=== PATIENT | male | born 1965 | race Caucasian/White ===

== ENCOUNTER 2018-04-17 22:45 | Inpatient (IN) | payer OTHER ==
[~2018-04-17 22:45] MED LIST: MELATONIN 5 MG TABLETS PO PRN
--- NOTE | 2018-04-17 22:59 | HP ---
CIWA Score - CIWA Score Nausea/Vomitin Muscle Tremors: 4-Moderate,w/Arms Extend Anxiety: 5 Agitation: 4-Moderately Restless Paroxysmal Sweats: 3 Orientation: 0-Oriented Tacttile Disturbances: 2-Mild Itch/Numbness/Burn Auditory Disturbances: 3-Moderate Harsh/Frighten Visual Disturbances: 3-Moderate Sensitivity Headache: 2-Mild CIWA-Ar Total Score: 29 Admission ROS BHS - HPI Chief Complaint: DEPENDENT ON ETOH ONLY Allergies/Adverse Reactions: Allergies Allergy/AdvReac Type Severity Reaction Status Date / Time No Known Allergies Allergy Verified 04/17/18 23:10 History of Present Illness: THE PT. IS REQUESTING ADMISSION TO THE DETOX UNIT AND CAME FOR MEDICAL CLEARANCE Exam Limitations: No Limitations - Ebola screening Have you traveled outside of the country in the last 21 days: No Have you had contact with anyone from an Ebola affected area: No Have you been sick,other than usual withdrawal symptoms: No Do you have a fever: No - Review of Systems Constitutional: See HPI, Malaise, Weakness EENT: reports: See HPI Respiratory: reports: See HPI Cardiac: reports: See HPI, Syncope GI: reports: See HPI, Nausea, Abdominal cramping : reports: See HPI Musculoskeletal: reports: See HPI, Back Pain, Joint Pain, Joint Swelling, Muscle Pain, Muscle Weakness Integumentary: reports: See HPI, Flushing, Sweating Neuro: reports: See HPI, Headache, Tremors, Weakness Endocrine: reports: See HPI Hematology: reports: See HPI Psychiatric: reports: Judgement Intact, Orientated x3, Anxious, Depressed Patient History - Patient Medical History Hx Hypertension: Yes Hx Human Immunodeficiency Virus (HIV): No Hx Hepatitis C: No Hx Depression: Yes (AND ANXIETY) Other Medical History: GOUT, INSOMNIA - Patient Surgical History Past Surgical History: Yes Hx Orthopedic Surgery: Yes (FOR LOW BACK 20 YRS. AGO) - Smoking Cessation Smoking history: Current every day smoker Have you smoked in the past 12 months: Yes Aproximately how many cigarettes per day: 20 Hx Chewing Tobacco Use: No Initiated information on smoking cessation: Yes 'Breaking Loose' booklet given: 04/17/18 - Substance & Tx. History Hx Alcohol Use: Yes Hx Substance Use: No Substance Use Type: Alcohol Hx Substance Use Treatment: Yes - Substances Abused Alcohol Frequency: Daily Amount used: LIQUOR 1-2 QTS./D Age of first use: 12 Date of Last Use: 04/17/18 Family Disease History - Family Disease History Family Disease History: Other: Father (ETOH DEPENDENT AND ) Admission Physical Exam [facility] - Physical General Appearance: Yes: No Apparent Distress, Nourished, Appropriately Dressed , Alcohol on Breath, Obese, Tremorous, Sweating, Anxious HEENTM: Yes: Hearing grossly Normal, Normocephalic, Normal Voice, INEZ, Pharynx Normal Respiratory: Yes: Chest Non-Tender, Lungs Clear, Normal Breath Sounds, No Respiratory Distress, No Accessory Muscle Use Neck: Yes: No masses,lesions,Nodules, Supple, Trachea in good position Breast: Yes: Breast Exam Deferred, Axillae without masses Cardiology: Yes: Regular Rhythm, S1, S2, Tachycardia Abdominal: Yes: Normal Bowel Sounds, Non Tender, Soft, Protuberent Back: Yes: Normal Inspection Musculoskeletal: Yes: full range of Motion, Muscle Pain, Muscle weakness Extremities: Yes: Normal Capillary Refill, Normal Range of Motion, Non-Tender, Tremors, Swelling Neurological: Yes: Fully Oriented, Alert, Motor Strength 5/5, Normal Response, Depressed Affect Integumentary: Yes: Warm, Moist Lymphatic: Yes: Within Normal Limits - Addiitonal Findings: RT. KNEE: SWELLING + SEC. TO EFFUSION+ RT. LOWER LIMB: MILD SWELLING+ - Diagnostic (1) EtOH dependence Current Visit: Yes Status: Chronic Qualifiers: Substance use status: uncomplicated Qualified Code(s): F10.20 - Alcohol dependence, uncomplicated (2) Anxiety and depression Current Visit: Yes Status: Chronic (3) Insomnia Current Visit: Yes Status: Acute Qualifiers: Insomnia type: unspecified Qualified Code(s): G47.00 - Insomnia, unspecified (4) Gout Current Visit: Yes Status: Chronic (5) Nicotine dependence Current Visit: Yes Status: Chronic Qualifiers: Nicotine product type: cigarettes (6) Obesity Current Visit: Yes Status: Acute (7) HTN (hypertension) Current Visit: Yes Status: Chronic Qualifiers: Hypertension type: essential hypertension Qualified Code(s): I10 - Essential (primary) hypertension (8) Chronic low back pain Current Visit: Yes Status: Chronic Qualifiers: Back pain laterality: midline Sciatica laterality: sciatica laterality unspecified Cleared for Admission [facility] - Detox or Rehab [facility] Level of Care: Medically Managed Detox Regimen/Protocol: Librium [facility] Breath Alcohol Content Breath Alcohol Content: 0.219
[2018-04-17] MEDS ORDERED: MENTHOL/PHENOL 1 EACH UD MM PRN (23:21)
[2018-04-17] MEDS ORDERED: chlordiazePOXIDE HCL 25 MG CAPSULE PO ONE (23:21)
[2018-04-17] MEDS ORDERED: MAGNESIUM CITRATE 300 ML BOTTLE PO PRN (23:21)
[2018-04-17] MEDS ORDERED: NICOTINE POLACRILEX 4 MG GUM BUC PRN (23:21)
[2018-04-17] MEDS ORDERED: P-EPHED 60MG/TRIPROLIDI 2.5MG TABLET PO PRN (23:21)
[2018-04-17] MEDS ORDERED: MAGNESIUM HYDROX 2400MG/30ML ORAL SUSPENSION 30 ML CUP PO PRN (23:21)
[2018-04-17] MEDS ORDERED: LOPERAMIDE HCL 2 MG CAPSULE PO PRN (23:21)
[2018-04-17] MEDS ORDERED: guaiFENesin/D-METHORPHAN HB 10 ML UNIT-DOSE CUPS PO PRN (23:21)
[2018-04-17] MEDS ORDERED: MAG HYDROX/AL HYDROX/SIMETH 30 ML UNIT-DOSE CUP PO PRN (23:21)
[2018-04-18 00:04] VITALS: BMI 33.7
[2018-04-18] MEDS: chlordiazePOXIDE HCL 25 MG CAPSULE PO SCH ×5 (05:40→22:06)
[2018-04-18] MEDS ORDERED: HYDROCHLOROTHIAZIDE 50 MG TABLET PO SCH (10:00)
[2018-04-18 10:12] LABS: HEMATOCRIT 46.2 % (35.4-49); HEMOGLOBIN 15.5 GM/dL (11.7-16.9); MCH 33.2 pg (25.7-33.7); MCHC 33.6 g/dl (32.0-35.9); PLATELET COUNT 102 K/MM3 (134-434); RBC 4.67 M/mm3 (4.00-5.60); RDW 13.7 % (11.9-15.9); WHITE BLOOD COUNT 6.5 K/mm3 (4.0-10.0)
[2018-04-18 10:42] LABS: ALBUMIN 3.4 g/dl (3.4-5.0); ALK PHOS 90 U/L (45-117); ANION GAP 9 MMOL/L (8-16); BILIRUBIN,TOTAL 0.4 mg/dL (0.2-1); BLOOD UREA NITROGEN 14 mg/dL (7-18); CALCIUM 8.6 mg/dL (8.5-10.1); CHLORIDE 106 mmol/L (98-107); CO2 26 mmol/L (21-32); CREATININE 0.7 mg/dL (0.55-1.3); GLUCOSE,RANDOM 99 mg/dL (74-106); POTASSIUM 3.2 mmol/L (3.5-5.1); SGOT/AST 65 U/L (15-37); SGPT/ALT 44 U/L (13-61); SODIUM 141 mmol/L (136-145); TOT PROT 7.3 g/dl (6.4-8.2)
[2018-04-18] MEDS: NICOTINE 21 MG/24 HOURS TOPICAL PATCH TD SCH (10:51)
[2018-04-18] MEDS: PRENATAL VITAMINS W/ FOLIC ACID TABLET (FP) PO SCH (10:51)
--- NOTE | 2018-04-18 11:10 | EKG ---
Test Reason : Blood Pressure : / mmHG Vent. Rate : 077 BPM Atrial Rate : 077 BPM P-R Int : 184 ms QRS Dur : 092 ms QT Int : 378 ms P-R-T Axes : 068 032 046 degrees QTc Int : 427 ms NORMAL SINUS RHYTHM NORMAL ECG NO PREVIOUS ECGS AVAILABLE Confirmed by SHAKIR MORILLO MD ([id number]) on 04/18/2018 11:10:09 AM Referred By: Confirmed By:SHAKIR MORILLO MD
--- NOTE | 2018-04-18 11:37 | CONSULT ---
[facility] Psychiatric Consult - Data Date of interview: 04/18/18 Admission source: [facility] Identifying data: This is a 52 years old male, , unemployed, homeless, on PA, with no psychiatric hospitalization history, reporting Alcohol, Nicotine dependence, reporting Alcohol withdrawal symptoms and seekingn detox. Denies suicidal, homicidal history. Substance Abuse History: Smoking Cessation. Smoking history: Current every day smoker. Have you smoked in the past 12 months: Yes. Aproximately how many cigarettes per day: 20. Hx Chewing Tobacco Use: No. Initiated information on smoking cessation: Yes. 'Breaking Loose' booklet given: 04/17/18. - Substance & Tx. History. Hx Alcohol Use: Yes. Hx Substance Use: No. Substance Use Type : Alcohol. Hx Substance Use Treatment: Yes. - Substances Abused. Alcohol. Frequency: Daily. Amount used: LIQUOR 1-2 QTS./D. Age of first use: 12. Date of Last Use: 04/17/18 Medical History: Gout, Obesity, HTN, LBP, Psychiatric History: Patient reports history of depression and insomnia, reports taking prior to admission: Trazodone 150mg po qhs. Patient denies suicidal, homicidal history. Physical/Sexual Abuse/Trauma History: Denies Additional Comment: Trazodone 150mg po qhs Mental Status Exam - Mental Status Exam Alert and Oriented to: Person Cognitive Function: Fair Patient Appearance: Well Groomed Mood: Apprehensive Affect: Mood Congruent Patient Behavior: Sedated Speech Pattern: Appropriate Voice Loudness: Mildly Soft/Quiet Thought Process: Goal Oriented Thought Disorder: Being Controlled Hallucinations: Denies Suicidal Ideation: Denies Homicidal Ideation: Denies Insight/Judgement: Fair Sleep: Poorly Appetite: Weight gain Muscle strength/Tone: Normal Gait/Station: Normal Additional Comments: Trazodone 150mg po qhs Psychiatric Findings - Problem List ([place] 1, 2,3) (1) Insomnia Current Visit: Yes Status: Acute Qualifiers: Insomnia type: unspecified Qualified Code(s): G47.00 - Insomnia, unspecified (2) Obesity Current Visit: Yes Status: Acute (3) Anxiety and depression Current Visit: Yes Status: Chronic (4) Chronic low back pain Current Visit: Yes Status: Chronic Qualifiers: Back pain laterality: midline Sciatica laterality: sciatica laterality unspecified (5) EtOH dependence Current Visit: Yes Status: Chronic Qualifiers: Substance use status: uncomplicated Qualified Code(s): F10.20 - Alcohol dependence, uncomplicated (6) Gout Current Visit: Yes Status: Chronic (7) HTN (hypertension) Current Visit: Yes Status: Chronic Qualifiers: Hypertension type: essential hypertension Qualified Code(s): I10 - Essential (primary) hypertension (8) Nicotine dependence Current Visit: Yes Status: Chronic Qualifiers: Nicotine product type: cigarettes - Initial Treatment Plan Initial Treatment Plan: Trazodone 150mg po qhs
[2018-04-18] MEDS: chlordiazePOXIDE HCL 25 MG CAPSULE PO PRN (12:36)
[2018-04-18] MEDS ORDERED: cloNIDine HCL 0.1 MG TABLET PO ONE ×2 (14:00→22:00)
[2018-04-18] MEDS ORDERED: chlordiazePOXIDE HCL 25 MG CAPSULE PO ONE (14:00)
--- NOTE | 2018-04-18 14:43 | PN ---
[facility] CIWA - CIWA Score Nausea/Vomitin-Mild Nausea/No Vomiting Muscle Tremors: 5 Anxiety: 3 Agitation: 3 Paroxysmal Sweats: 1-Minimal Palms Moist Orientation: 1-Uncertain about Date Tacttile Disturbances: 1-Very Mild Itch/Numbness Auditory Disturbances: 1-Very Mild Visual Disturbances: 0-None Headache: 1-Very Mild CIWA-Ar Total Score: 17 BHS Progress Note (SOAP) Subjective: tremor sweat gi distressed trouble sleep at night restlessness Objective: 04/18/18 14:39 Vital Signs Temperature 97.7 F 04/18/18 13:04 Pulse Rate 76 04/18/18 14:00 Respiratory Rate 20 04/18/18 13:04 Blood Pressure 172/90 H 04/18/18 13:04 O2 Sat by Pulse Oximetry (%) Laboratory Last Values WBC 6.5 K/mm3 (4.0-10.0) 04/18/18 07:30 RBC 4.67 M/mm3 (4.00-5.60) 04/18/18 07:30 Hgb 15.5 GM/dL (11.7-16.9) 04/18/18 07:30 Hct 46.2 % (35.4-49) 04/18/18 07:30 MCV 99.0 fl (80-96) H 04/18/18 07:30 MCH 33.2 pg (25.7-33.7) 04/18/18 07:30 MCHC 33.6 g/dl (32.0-35.9) 04/18/18 07:30 RDW 13.7 % (11.9-15.9) 04/18/18 07:30 Plt Count 102 K/MM3 (134-434) L 04/18/18 07:30 MPV 6.0 fl (7.5-11.1) L 04/18/18 07:30 Sodium 141 mmol/L (136-145) 04/18/18 07:30 Potassium 3.2 mmol/L (3.5-5.1) L 04/18/18 07:30 Chloride 106 mmol/L (98-107) 04/18/18 07:30 Carbon Dioxide 26 mmol/L (21-32) 04/18/18 07:30 Anion Gap 9 MMOL/L (8-16) 04/18/18 07:30 BUN 14 mg/dL (7-18) 04/18/18 07:30 Creatinine 0.7 mg/dL (0.55-1.3) 04/18/18 07:30 Creat Clearance w eGFR > 60 (>60) 04/18/18 07:30 Random Glucose 99 mg/dL (74-106) 04/18/18 07:30 Calcium 8.6 mg/dL (8.5-10.1) 04/18/18 07:30 Total Bilirubin 0.4 mg/dL (0.2-1) 04/18/18 07:30 AST 65 U/L (15-37) H 04/18/18 07:30 ALT 44 U/L (13-61) 04/18/18 07:30 Alkaline Phosphatase 90 U/L (45-117) 04/18/18 07:30 Total Protein 7.3 g/dl (6.4-8.2) 04/18/18 07:30 Albumin 3.4 g/dl (3.4-5.0) 04/18/18 07:30 RPR Titer Nonreactive (NONREACTIVE) 04/18/18 07:30 lab noted K+ supplement Assessment: 04/18/18 15:04 withdrawal sx Plan: continue detox
[2018-04-18] MEDS: POTASSIUM CHLORIDE TABS 20 MEQ TABLET.ER (FP) PO SCH ×2 (17:26→22:06)
[2018-04-18] MEDS: hydrOXYzine PAMOATE 50 MG CAPSULE (FP) PO PRN (20:20)
--- NOTE | 2018-04-18 22:05 | PN ---
[facility] Progress Note Note: Patient's blood pressure is B/P 186/109. Patient is asymptomatic Vital Signs Temperature 97.7 F 04/18/18 21:43 Pulse Rate 88 04/18/18 21:43 Respiratory Rate 18 04/18/18 21:43 Blood Pressure 186/109 H 04/18/18 21:43 O2 Sat by Pulse Oximetry (%) Action: Clonidine 0.1mg 1 tablet oral ordered
[2018-04-18] MEDS: THIAMINE HCL 100 MG TABLET (FP) PO SCH (22:06)
[2018-04-19] MEDS: IBUPROFEN 400 MG TABLET (FP) PO PRN ×2 (02:15→14:30)
[2018-04-19] MEDS: chlordiazePOXIDE HCL 25 MG CAPSULE PO PRN (02:17)
[2018-04-19] MEDS: chlordiazePOXIDE HCL 25 MG CAPSULE PO SCH ×3 (06:00→17:54)
[2018-04-19] MEDS: POTASSIUM CHLORIDE TABS 20 MEQ TABLET.ER (FP) PO SCH ×2 (11:02→22:09)
[2018-04-19] MEDS: HYDROCHLOROTHIAZIDE 25 MG TABLET (FP) PO SCH (11:02)
[2018-04-19] MEDS: PRENATAL VITAMINS W/ FOLIC ACID TABLET (FP) PO SCH (11:02)
[2018-04-19] MEDS: NICOTINE 21 MG/24 HOURS TOPICAL PATCH TD SCH (11:02)
--- NOTE | 2018-04-19 12:07 | PN ---
[facility] CIWA - CIWA Score Nausea/Vomitin-Mild Nausea/No Vomiting Muscle Tremors: 4-Moderate,w/Arms Extend Anxiety: 4-Mod. Anxious/Guarded Agitation: 4-Moderately Restless Paroxysmal Sweats: 1-Minimal Palms Moist Orientation: 0-Oriented Tacttile Disturbances: 0-None Auditory Disturbances: 0-None Visual Disturbances: 0-None Headache: 1-Very Mild CIWA-Ar Total Score: 15 BHS Progress Note (SOAP) Subjective: sweat tremor anxiety c/o right knee pain history of gout right knee swell +1, tender, no erythema, skin intact neg warmth +2 popteal pulse limited range of motion Objective: 04/19/18 12:11 Vital Signs Temperature 97.9 F 04/19/18 09:37 Pulse Rate 71 04/19/18 09:37 Respiratory Rate 18 04/19/18 09:37 Blood Pressure 175/75 H 04/19/18 09:37 O2 Sat by Pulse Oximetry (%) Laboratory Last Values WBC 6.5 K/mm3 (4.0-10.0) 04/18/18 07:30 RBC 4.67 M/mm3 (4.00-5.60) 04/18/18 07:30 Hgb 15.5 GM/dL (11.7-16.9) 04/18/18 07:30 Hct 46.2 % (35.4-49) 04/18/18 07:30 MCV 99.0 fl (80-96) H 04/18/18 07:30 MCH 33.2 pg (25.7-33.7) 04/18/18 07:30 MCHC 33.6 g/dl (32.0-35.9) 04/18/18 07:30 RDW 13.7 % (11.9-15.9) 04/18/18 07:30 Plt Count 102 K/MM3 (134-434) L 04/18/18 07:30 MPV 6.0 fl (7.5-11.1) L 04/18/18 07:30 Sodium 141 mmol/L (136-145) 04/18/18 07:30 Potassium 3.4 mmol/L (3.5-5.1) L 04/19/18 07:00 Chloride 106 mmol/L (98-107) 04/18/18 07:30 Carbon Dioxide 26 mmol/L (21-32) 04/18/18 07:30 Anion Gap 9 MMOL/L (8-16) 04/18/18 07:30 BUN 14 mg/dL (7-18) 04/18/18 07:30 Creatinine 0.7 mg/dL (0.55-1.3) 04/18/18 07:30 Creat Clearance w eGFR > 60 (>60) 04/18/18 07:30 Random Glucose 99 mg/dL (74-106) 04/18/18 07:30 Calcium 8.6 mg/dL (8.5-10.1) 04/18/18 07:30 Total Bilirubin 0.4 mg/dL (0.2-1) 04/18/18 07:30 AST 65 U/L (15-37) H 04/18/18 07:30 ALT 44 U/L (13-61) 04/18/18 07:30 Alkaline Phosphatase 90 U/L (45-117) 04/18/18 07:30 Total Protein 7.3 g/dl (6.4-8.2) 04/18/18 07:30 Albumin 3.4 g/dl (3.4-5.0) 04/18/18 07:30 RPR Titer Nonreactive (NONREACTIVE) 04/18/18 07:30 lab noted 04/19/18 12:12 persistent bp elevation prn librium without effect begin amlodopine 10 mg Assessment: 04/19/18 12:13 withdrawal sx hypertension low K+ Plan: continue detox continue K+ supplement repeat K+ 04/20/18 amlodopine 10 mg
[2018-04-19] MEDS: amLODIPine BESYLATE 10 MG TABLET (FP) PO SCH (14:30)
[2018-04-19] MEDS: hydrOXYzine PAMOATE 50 MG CAPSULE (FP) PO PRN (17:55)
[2018-04-19] MEDS: ACETAMINOPHEN 325 MG TABLET (FP) PO PRN (19:42)
[2018-04-19] MEDS: THIAMINE HCL 100 MG TABLET (FP) PO SCH (22:09)
[2018-04-19] MEDS: chlordiazePOXIDE 5 MG CAPSULE PO SCH (22:11)
[2018-04-20] MEDS: IBUPROFEN 400 MG TABLET (FP) PO PRN (00:42)
[2018-04-20] MEDS: chlordiazePOXIDE HCL 25 MG CAPSULE PO PRN (00:45)
[2018-04-20] MEDS: chlordiazePOXIDE 5 MG CAPSULE PO SCH ×2 (06:21→11:43)
[2018-04-20] MEDS: ACETAMINOPHEN 325 MG TABLET (FP) PO PRN (06:27)
[2018-04-20] MEDS ORDERED: predniSONE 20 MG TABLET (UD) PO ONE (11:40)
[2018-04-20] MEDS: HYDROCHLOROTHIAZIDE 25 MG TABLET (FP) PO SCH (11:41)
[2018-04-20] MEDS: PRENATAL VITAMINS W/ FOLIC ACID TABLET (FP) PO SCH (11:41)
[2018-04-20] MEDS: POTASSIUM CHLORIDE TABS 20 MEQ TABLET.ER (FP) PO SCH (11:41)
[2018-04-20] MEDS: amLODIPine BESYLATE 10 MG TABLET (FP) PO SCH (11:42)
[2018-04-20] MEDS: NICOTINE 21 MG/24 HOURS TOPICAL PATCH TD SCH (11:42)
--- NOTE | 2018-04-20 11:48 | DS ---
[facility] Detox Discharge Summary Admission Date: 04/17/18 Discharge Date: 04/20/18 - History Present History: Alcohol Dependence Additional Comments: 52 years old male admitted on 04/17/18 for alcohol withdrawal sx patient reported feeling better mild alcohol withdrawal sx bare tolerable case discussed with counselor that 5[facility] has a bed for the patient, patient wants to go to [facility] for rehab patient has gout x 15 years on and off average "many times" per year taking indomethacin prn and prednison patient stated that he fell in the bathroom, unwitnessed fall by protocol ER evaluation is necessary also the patient reporte 04/20 pain on right knee immobile, wheelchair patient understand that rehab bed available for him when return from ER medical clearance current medical condition: low potassium serum level on K+ supplement 20 meq bid level 3.2 - 3.4 0 3.2 one extra dose K+ now and prednison 60 mg now if possible patient may return to [facility] for [facility] rehab when medically cleared from ER - Physical Exam Results Vital Signs: Vital Signs Temperature 98.1 F 04/20/18 10:13 Pulse Rate 98 H 04/20/18 10:13 Respiratory Rate 19 04/20/18 10:13 Blood Pressure 154/94 04/20/18 10:13 O2 Sat by Pulse Oximetry (%) Pertinent Admission Physical Exam Findings: alcohol withdrawal sx Vital Signs Temperature 98.1 F 04/20/18 10:13 Pulse Rate 98 H 04/20/18 10:13 Respiratory Rate 19 04/20/18 10:13 Blood Pressure 154/94 04/20/18 10:13 O2 Sat by Pulse Oximetry (%) Laboratory Last Values WBC 6.5 K/mm3 (4.0-10.0) 04/18/18 07:30 RBC 4.67 M/mm3 (4.00-5.60) 04/18/18 07:30 Hgb 15.5 GM/dL (11.7-16.9) 04/18/18 07:30 Hct 46.2 % (35.4-49) 04/18/18 07:30 MCV 99.0 fl (80-96) H 04/18/18 07:30 MCH 33.2 pg (25.7-33.7) 04/18/18 07:30 MCHC 33.6 g/dl (32.0-35.9) 04/18/18 07:30 RDW 13.7 % (11.9-15.9) 04/18/18 07:30 Plt Count 102 K/MM3 (134-434) L 04/18/18 07:30 MPV 6.0 fl (7.5-11.1) L 04/18/18 07:30 Sodium 141 mmol/L (136-145) 04/18/18 07:30 Potassium 3.2 mmol/L (3.5-5.1) L 04/20/18 07:30 Chloride 106 mmol/L (98-107) 04/18/18 07:30 Carbon Dioxide 26 mmol/L (21-32) 04/18/18 07:30 Anion Gap 9 MMOL/L (8-16) 04/18/18 07:30 BUN 14 mg/dL (7-18) 04/18/18 07:30 Creatinine 0.7 mg/dL (0.55-1.3) 04/18/18 07:30 Creat Clearance w eGFR > 60 (>60) 04/18/18 07:30 Random Glucose 99 mg/dL (74-106) 04/18/18 07:30 Calcium 8.6 mg/dL (8.5-10.1) 04/18/18 07:30 Total Bilirubin 0.4 mg/dL (0.2-1) 04/18/18 07:30 AST 65 U/L (15-37) H 04/18/18 07:30 ALT 44 U/L (13-61) 04/18/18 07:30 Alkaline Phosphatase 90 U/L (45-117) 04/18/18 07:30 Total Protein 7.3 g/dl (6.4-8.2) 04/18/18 07:30 Albumin 3.4 g/dl (3.4-5.0) 04/18/18 07:30 RPR Titer Nonreactive (NONREACTIVE) 04/18/18 07:30 lab noted K+ extra dose x 1 repeat K+ - Treatment Hospital Course: Detox Protocol Followed, Detoxed Safely, Responded well, Discharged Condition Good, Rehab Referral Accepted Patient has Accepted a Rehab Referral to: [facility] - Medication Discharge Medications: Ambulatory Orders NK [No Known Home Medication] 10/08/18 - Diagnosis (1) EtOH dependence Current Visit: Yes Status: Acute Qualifiers: Substance use status: uncomplicated Qualified Code(s): F10.20 - Alcohol dependence, uncomplicated (2) Gout Current Visit: Yes Status: Chronic Qualifiers: Gout site: knee Gout etiology: unspecified cause Chronicity: acute Laterality: right Qualified Code(s): M10.9 - Gout, unspecified (3) HTN (hypertension) Current Visit: Yes Status: Chronic Qualifiers: Hypertension type: essential hypertension Qualified Code(s): I10 - Essential (primary) hypertension (4) Nicotine dependence Current Visit: Yes Status: Acute Qualifiers: Nicotine product type: cigarettes Substance use status: in withdrawal Qualified Code(s): F17.213 - Nicotine dependence, cigarettes, with withdrawal - AMA Did Patient Leave Against Medical Advice: No
[2018-04-20] MEDS ORDERED: POTASSIUM CHLORIDE TABS 20 MEQ TABLET.ER (FP) PO ONE (11:53)
[2018-04-20 13:12] VITALS: BP 159/97; PULSE 79; TEMP 100
[2018-04-20] MEDS ORDERED: INDOMETHACIN 50 MG CAPSULE PO SCH (14:00)
[2018-04-20] MEDS ORDERED: chlordiazePOXIDE HCL 10 MG CAPSULE PO SCH (23:00)
== END 2018-04-20 12:06 | disposition short-term general hospital (02) | DRG 775 ==
LOC: YASAS 22:45 → Y6N 23:36
PROC: HZ2ZZZZ Detoxification Services for Substance Abuse Treatment (ICD-10-PCS; principal; 2018-04-17)
DX: F10.230 Alcohol dependence with withdrawal, uncomplicated (principal); F17.213 Nicotine dependence, cigarettes, with withdrawal; F41.8 Other specified anxiety disorders; I10 Essential (primary) hypertension; M10.9 Gout, unspecified; G47.00 Insomnia, unspecified; M54.5 Low back pain; G89.29 Other chronic pain; E66.9 Obesity, unspecified; Z68.33 Body mass index [BMI] 33.0-33.9, adult
CPT/HCPCS: 36415; 73560-TC-RT-FY; 80053; 84132; 85027; 86593; 93005; 93010; J0735

== ENCOUNTER 2018-04-20 12:18 | Inpatient (IN) | payer OTHER ==
--- NOTE | 2018-04-20 13:15 | PDOC ---
History of Present Illness - General Stated Complaint: FALL - History of Present Illness Initial Comments: 04/20/18 13:09 52 yo M w/ PMH anxiety, HTN, etoh abuse, gout, presenting to the ED from detox ( admitted 04/17/18) after sustaining unwitnessed mechanical fall and R knee joint swelling/possible gout flare x3wk. Pt says he slipped on wet pavement and fell on his knee 2mo ago. 3 weeks ago he noticed his R knee started to swell. pt endorses diet heavy in meat and fish and f/w a PCP ([facility]) who prescribed him indomethacin and prednisone PRN. pt ran out of his meds and did not f/u w/ PCP. pt says it has become increasingly difficult to walk on his feet and has increased etoh use to numb pain. In detox today, pt had unwitnessed mechanical fall on R side, denies LOC, neuro deficits, or hitting head but does endorse a mild CHIRINOS. Pt also endorses fevers and chills and says he is unable to walk/bend R knee due to 10/10 pain. Pt had one episode of diarrhea today. Pt also having some pain in L ankle w/ movement. detox sent pt here to be w/u for fall and gout Denies cp, sob, n/v, urinary sxs, numbness, tingling, abd pain SH: denies drugs. etoh quart a day. smoke 1pk/dy for 30 yrs Past History - Past Medical History Allergies/Adverse Reactions: Allergies Allergy/AdvReac Type Severity Reaction Status Date / Time No Known Allergies Allergy Verified 04/20/18 13:06 Home Medications: Ambulatory Orders NK [No Known Home Medication] 04/18/18 Asthma: No Cardiac Disorders: No COPD: No Diabetes: No GI Disorders: No HTN: Yes Seizures: No - Surgical History Orthopedic Surgery: Yes (FOR LOW BACK 20 YRS. AGO) - Suicide/Smoking/Psychosocial Hx Smoking History: Current every day smoker Have you smoked in the past 12 months: Yes Number of Cigarettes Smoked Daily: 35 Information on smoking cessation initiated: Yes 'Breaking Loose' booklet given: 04/20/18 Hx Alcohol Use: Yes Drug/Substance Use Hx: No Substance Use Type: Alcohol Hx Substance Use Treatment: Yes Review of Systems - Review of Systems Constitutional: Yes: See HPI HEENTM: Yes: See HPI Respiratory: Yes: See HPI Cardiac (ROS): Yes: See HPI ABD/GI: Yes: See HPI : Yes: See HPI Musculoskeletal: Yes: See HPI Integumentary: Yes: See HPI Neurological: Yes: See HPI Endocrine: Yes: See HPI Hematologic/Lymphatic: Yes: See HPI *Physical Exam - Vital Signs Last Vital Signs Temp Pulse Resp BP Pulse Ox 98.1 F 100 H 18 156/144 H 100 04/20/18 13:05 04/20/18 13:05 04/20/18 13:05 04/20/18 13:05 04/20/18 13:05 - Physical Exam Comments: 04/20/18 14:04 General: Well-nourished, in mild distress HEENT: NCAT, MMM Neck: Supple, no lymphadenopathy Respiratory: CTAB cardio: RRR S1 S2 no m/r/g Abdomen:+ BS Soft, NTND Extremities: radial 2+ b/l. Warm, dry, no cyanosis, clubbing. RLE, suprapatellar soft tissue swelling, no erythema, warm to touch, TTP, Limited passive ROM, FROM w/ active felxion by me. LLE no swelling, non-tender, FROM Skin: intact. no rashes Neuro: Alert and oriented x3, nonfocal exam, grossly intact Psych: Normal mood and affect Procedures - Consent Consent obtained: Verbal - Arthrocentesis Indication: Crystals (Gout/Psuedogout, Inflammation Arthrocentesis Site: right: knee Flexion: <20 degrees Betadine Prep: Yes Sterile Dressing Applied: Yes Dry Tap: Yes Fluid Color: Yellow Fluid Amount mL: 15 (110cc drained) Needle Size (guage): 18g Complications: No ED Treatment Course - LABORATORY CBC & Chemistry Diagram: 04/20/18 13:40 04/20/18 13:40 Medical Decision Making - Medical Decision Making 04/20/18 14:09 52 yo M w/ PMH anxiety, HTN, etoh abuse, gout, presenting to the ED from detox ( admitted 04/17/18) after sustaining unwitnessed mechanical fall and R knee joint swelling/possible gout flare x3wk pt has fever 100.8, tachy. recent knee xr on 04/19/18 shows joint effusion Ddx: gout flare, septic joint, frax -CBC, CMP, coags, uric acid, Bcx, Ucx, UA -CXR -Indomethacin 50mg -Knee XR r/o frax -will f/u labs and xr and tap knee if joint effusion is present 04/20/18 15:36 urc acid nl leukocytosis XR shows no frax, soft tissue swelling superior to patela/within joint capsule 04/20/18 15:41 R knee arthrocentisis performed, 110cc turbid yellow fluid drained will send synovial fluid for cx, cell count, crystal percocet for pain CXR shows no acute pathology GC amplification 04/20/18 18:27 pt received 3 of 4 doses librium at detox will complete 4th dose now 04/20/18 21:02 wbc [id number] - not septic joint attempted to ambulate pt and pt is unable to ambulate on his own and is too unstable with crutches will place in obs for pain control - pred/colchicine/indomethicin 04/20/18 20:[address] Hendrix for pain control and PT eval for gout arthritis of R knee 04/20/18 20:[address] Hendrix who accepts pt to service *DC/Admit/Observation/Transfer Diagnosis at time of Disposition: Inability to walk EtOH dependence Qualifiers: Substance use status: uncomplicated Qualified Code(s): F10.20 - Alcohol dependence, uncomplicated Gout Qualifiers: Gout site: knee Gout etiology: unspecified cause Chronicity: acute Laterality: right Qualified Code(s): M10.9 - Gout, unspecified - Referrals - Patient Instructions - Post Discharge Activity
[2018-04-20 13:52] LABS: BASO % 0.5 % (0-2.0); EOS % 0.7 % (0-4.5); HEMOGLOBIN 17.2 GM/dL (11.7-16.9); LYMPH % 5.9 % (8-40); MCH 33.1 pg (25.7-33.7); MCHC 33.7 g/dl (32.0-35.9); MEAN CELL VOLUME 98.3 fl (80-96); MEAN PLT VOLUME 6.5 fl (7.5-11.1); MONO % 8.3 % (3.8-10.2); NEUT % 84.6 % (42.8-82.8); PLATELET COUNT 82 K/MM3 (134-434); RBC 5.19 M/mm3 (4.00-5.60); RDW 13.5 % (11.9-15.9); WHITE BLOOD COUNT 12.7 K/mm3 (4.0-10.0)
[2018-04-20] MEDS ORDERED: INDOMETHACIN 50 MG CAPSULE PO ONE (13:53)
[2018-04-20 14:21] LABS: INR 0.97 (0.83-1.09); PROTHROMBIN TIME (PATIENT) 11.5 SEC (9.7-13.0)
[2018-04-20 14:24] LABS: ACTIVATED PTT 31.5 SECONDS (25.2-36.5)
[2018-04-20 14:33] LABS: ALK PHOS 114 U/L (45-117); ANION GAP 9 MMOL/L (8-16); BILIRUBIN,TOTAL 1.6 mg/dL (0.2-1); BLOOD UREA NITROGEN 19 mg/dL (7-18); CALCIUM 9.8 mg/dL (8.5-10.1); CHLORIDE 100 mmol/L (98-107); CO2 26 mmol/L (21-32); CREATININE 1.2 mg/dL (0.55-1.3); GLUCOSE,RANDOM 121 mg/dL (74-106); POTASSIUM 3.9 mmol/L (3.5-5.1); SGOT/AST 40 U/L (15-37); SGPT/ALT 37 U/L (13-61); SODIUM 134 mmol/L (136-145); TOT PROT 8.8 g/dl (6.4-8.2)
--- NOTE | 2018-04-20 14:40 | PDOC ---
Attending Attestation - HPI HPI: 04/20/18 14:40 The patient is a 52-year-old male with past medical history significant for HTN and anxiety presents to the emergency department s/p a fall at the detox facility. The patient states hes been having difficulty ambulating secondary to a flare-up of R. knee swelling. - Medical Decision Making 04/20/18 14:40 Documentation prepared by Palak Boo, acting as medical records administrator for Michoacano Camacho MD. <Palak Boo - Last Filed: 04/20/18 14:40> - Resident Resident Name: Ike Retana - ED Attending Attestation I have performed the following: I have examined & evaluated the patient, The case was reviewed & discussed with the resident, I agree w/resident's findings & plan, Exceptions are as noted - Physicial Exam PE: 04/20/18 15:59 Patient is awake and alert, febrile, nontoxic appearing Normocephalic and atraumatic CTA RRR Right knee: Significant suprapatellar soft tissue swelling with effusion, anterior/posterior drawers are negative; Beatrice's negative; distally intact neurovascularly. - Medical Decision Making 04/20/18 16:00 52-year-old male with history of gout and EtOH abuse, currently patient at [facility] inpatient for alcohol abuse presents with low-grade fever and and atraumatic edematous right knee. Differential diagnoses includes septic arthritis versus gouty arthritis versus pseudogout. Blood cultures obtained. Arthrocentesis obtained with drainage of approximately 110 mL of turbid yellow fluid. Will obtain fluid culture, cell count profile and will test for crystals. We'll administer Indocin. Will reassess. <Michoacano Camacho - Last Filed: 04/20/18 16:01>
--- NOTE | 2018-04-20 16:59 | PDOC ---
*Physical Exam - Vital Signs Last Vital Signs Temp Pulse Resp BP Pulse Ox 98.1 F 100 H 18 147/101 H 100 04/20/18 13:05 04/20/18 13:31 04/20/18 13:31 04/20/18 13:31 04/20/18 13:31 - Physical Exam Comments: 04/20/18 20:38 Gen: awake, alert heart: +s1s2 reg lungs: cta b/l abd: soft, nt/nd, +bs ext: R knee ttp, dressing in place from arthrocentesis, pt unable to ambulate with assistance or with crutches ED Treatment Course - LABORATORY CBC & Chemistry Diagram: 04/20/18 13:40 04/20/18 13:40 - ADDITIONAL ORDERS Additional order review: Laboratory Results 04/20/18 04/20/18 04/20/18 13:40 13:40 13:39 PT with INR 11.50 INR 0.97 PTT (Actin FS) 31.5 Sodium 134 L Potassium 3.9 Chloride 100 Carbon Dioxide 26 Anion Gap 9 BUN 19 H Creatinine 1.2 Creat Clearance w eGFR > 60 Random Glucose 121 H Uric Acid 7.2 Calcium 9.8 Total Bilirubin 1.6 H AST 40 H ALT 37 Alkaline Phosphatase 114 Total Protein 8.8 H Albumin 4.0 04/20/18 13:40 RBC 5.19 MCV 98.3 H MCHC 33.7 RDW 13.5 MPV 6.5 L Neutrophils % 84.6 H Lymphocytes % 5.9 L Monocytes % 8.3 Eosinophils % 0.7 Basophils % 0.5 - Medications Given in the ED: ED Medications Discontinued Medications Generic Name Dose Route Start Last Admin Trade Name Kristin PRN Reason Stop Dose Admin Indomethacin 50 mg 04/20/18 13:53 04/20/18 15:14 Indocin - PO 04/20/18 13:54 50 mg ONCE ONE Administration Oxycodone/Acetaminophen 1 combo 04/20/18 16:06 04/20/18 16:12 Percocet 5/325 - PO 04/20/18 16:07 1 combo ONCE ONE Administration Medical Decision Making - Medical Decision Making 04/20/18 16:58 a/p: 52yo male with knee swelling, low grade temp, hx of gout pt from inpt at [facility] for detox from [facility] pt pending labs, arthrocentesis results. 04/20/18 20:39 wbc [id number] - not septic joint attempted to ambulate pt and pt is unable to ambulate on his own and is too unstable with crutches will place in obs for pain control - pred/colchicine/indomethicin 04/20/18 20:[address] Hendrix for pain control and PT eval for gout arthritis of R knee 04/20/18 20:[address] Hendrix who accepts pt to service *DC/Admit/Observation/Transfer Diagnosis at time of Disposition: EtOH dependence, Gout, Inability to walk - Discharge Dispostion Condition at time of disposition: Fair Decision to Admit order: Yes - Referrals - Patient Instructions - Post Discharge Activity - Attestations Physician Attestion: 04/20/18 20:46 I, Dr. Jessica Guzmán, DO, attest that this document has been prepared under my direction and personally reviewed by me in its entirety. I further attest, that it accurately reflects all work, treatment, procedures and medical decision -making performed by me.
[2018-04-20 17:37] LABS: URINE APPEARANCE CLEAR; URINE BILIRUBIN NEGATIVE (<2.0 mg/dL); URINE COLOR YELLOW; URINE GLUCOSE (UA) NEGATIVE (NEGATIVE); URINE KETONE TRACE (NEGATIVE); URINE LEUK ESTERASE NEGATIVE (NEGATIVE); URINE NITRITE NEGATIVE (NEGATIVE); URINE PROTEIN 2+ (NEGATIVE); URINE UROBILINOGEN NEGATIVE mg/dL (0.2-1.0)
[2018-04-20 17:46] LABS: EPI CELLS RARE /HPF (FEW); URINE MUCUS RARE
[2018-04-20] MEDS ORDERED: chlordiazePOXIDE HCL 10 MG CAPSULE PO ONE (18:26)
[2018-04-20] MEDS ORDERED: chlordiazePOXIDE 5 MG CAPSULE ONE ×2 (18:30→22:55)
[2018-04-20 18:36] LABS: SYNOVIAL FLUID SOURCE SYNOVIAL
[2018-04-20 18:37] LABS: SYNOVIAL FLUID RBC 29737 /mm3
[2018-04-20] MEDS ORDERED: COLCHICINE 0.6 MG TABLET (FP) PO ONE (20:39)
[2018-04-20] MEDS ORDERED: predniSONE 20 MG TABLET (UD) PO ONE (20:40)
[2018-04-20 21:23] LABS: SYNOVIAL FLUID LYMPHOCYTES 5 %; SYNOVIAL FLUID MACROPHAGES 3 %; SYNOVIAL FLUID MONOCYTES 5 %; SYNOVIAL FLUID NEUTROPHILS 87 %
[2018-04-20] MEDS ORDERED: predniSONE 20 MG TABLET (UD) ONE (21:34)
[2018-04-20] MEDS ORDERED: COLCHICINE 0.6 MG TABLET (FP) ONE (21:34)
--- NOTE | 2018-04-20 21:53 | HP ---
Admitting History and Physical - Primary Care Physician PCP: Akhil Hendrix - Admission History of Present Illness: 52 yo M w/ PMH anxiety, HTN, etoh abuse, gout, presenting to the ED from detox ( admitted 04/17/18) after sustaining unwitnessed mechanical fall and R knee joint swelling/possible gout flare x3wk. Pt says he slipped on wet pavement and fell on his knee 2mo ago. 3 weeks ago he noticed his R knee started to swell. pt endorses diet heavy in meat and fish and f/w a PCP ([facility]) who prescribed him indomethacin and prednisone PRN. pt ran out of his meds and did not f/u w/ PCP. pt says it has become increasingly difficult to walk on his feet and has increased etoh use to numb pain. In detox today, pt had unwitnessed mechanical fall on R side, denies LOC, neuro deficits, or hitting head but does endorse a mild CHIRINOS. Pt also endorses fevers and chills and says he is unable to walk/bend R knee due to 10/10 pain. Pt had one episode of diarrhea today. Pt also having some pain in L ankle w/ movement. detox sent pt here to be w/u for fall and gout - Past Medical History Cardiovascular: Yes: HTN Rheumatology: Yes: Gout - Smoking History Smoking history: Current every day smoker Have you smoked in the past 12 months: Yes Aproximately how many cigarettes per day: 35 - Alcohol/Substance Use Hx Alcohol Use: Yes Home Medications - Allergies Allergies/Adverse Reactions: Allergies Allergy/AdvReac Type Severity Reaction Status Date / Time No Known Allergies Allergy Verified 04/20/18 13:06 - Home Medications Home Medications: Ambulatory Orders Paxil 40 mg PO DAILY 04/21/18 Trazodone HCl 150 mg PO HS 04/21/18 Family Disease History - Family Disease History Family Disease History: Other: Father (ETOH DEPENDENT AND ) Physical Examination Vital Signs: Vital Signs Temperature 98.1 F 04/20/18 13:05 Pulse Rate 100 H 04/20/18 13:31 Respiratory Rate 18 04/20/18 13:31 Blood Pressure 147/101 H 04/20/18 13:31 O2 Sat by Pulse Oximetry (%) 100 04/20/18 13:31 HENT: Yes: Atraumatic Neck: Yes: Supple Cardiovascular: Yes: Regular Rate and Rhythm Respiratory: Yes: CTA Bilaterally Gastrointestinal: Yes: Normal Bowel Sounds Extremities: Yes: Other (R knee warm, swollen) Edema: No Neurological: Yes: Alert, Oriented Labs: CBC, BMP 04/20/18 13:40 04/20/18 13:40 Imaging - Results X-ray: Report Reviewed Problem List - Problems (1) EtOH dependence Assessment/Plan: on librium will get detox consult Code(s): F10.20 - ALCOHOL DEPENDENCE, UNCOMPLICATED Qualifiers: (2) Inability to walk Assessment/Plan: prn pain meds Code(s): R26.2 - DIFFICULTY IN WALKING, NOT ELSEWHERE CLASSIFIED (3) Gout Assessment/Plan: will put him on prednisone check uric acid level Code(s): M10.9 - GOUT, UNSPECIFIED Qualifiers: (4) Nicotine dependence Code(s): F17.200 - NICOTINE DEPENDENCE, UNSPECIFIED, UNCOMPLICATED Qualifiers: (5) Anxiety and depression Assessment/Plan: will get psych eval Code(s): F41.9 - ANXIETY DISORDER, UNSPECIFIED; F32.9 - MAJOR DEPRESSIVE DISORDER, SINGLE EPISODE, UNSPECIFIED Assessment/Plan Laboratory Tests 04/20/18 04/20/18 04/20/18 13:39 13:40 13:40 WBC 12.7 H RBC 5.19 Hgb 17.2 H Hct 51.0 H MCV 98.3 H MCH 33.1 MCHC 33.7 RDW 13.5 Plt Count 82 L MPV 6.5 L Absolute Neuts (auto) 10.7 H Neutrophils % 84.6 H Lymphocytes % 5.9 L Monocytes % 8.3 Eosinophils % 0.7 Basophils % 0.5 Nucleated RBC % 0 PT with INR 11.50 INR 0.97 PTT (Actin FS) 31.5 Sodium Potassium Chloride Carbon Dioxide Anion Gap BUN Creatinine Creat Clearance w eGFR Random Glucose Uric Acid 7.2 Calcium Total Bilirubin AST ALT Alkaline Phosphatase Total Protein Albumin Urine Color Urine Appearance Urine pH Ur Specific [place] Urine Protein Urine Glucose (UA) Urine Ketones Urine Blood Urine Nitrite Urine Bilirubin Urine Urobilinogen Ur Leukocyte Esterase Urine WBC (Auto) Urine RBC (Auto) Ur Epithelial Cells Urine Mucus Synovial Source Synovial WBC Synovial RBC Synovial Neutrophils Synovial Lymphocytes Synovial Monocytes Synovial Macrophages 04/20/18 04/20/18 04/20/18 13:40 15:36 17:00 WBC RBC Hgb Hct MCV MCH MCHC RDW Plt Count MPV Absolute Neuts (auto) Neutrophils % Lymphocytes % Monocytes % Eosinophils % Basophils % Nucleated RBC % PT with INR INR PTT (Actin FS) Sodium 134 L Potassium 3.9 Chloride 100 Carbon Dioxide 26 Anion Gap 9 BUN 19 H Creatinine 1.2 Creat Clearance w eGFR > 60 Random Glucose 121 H Uric Acid Calcium 9.8 Total Bilirubin 1.6 H AST 40 H ALT 37 Alkaline Phosphatase 114 Total Protein 8.8 H Albumin 4.0 Urine Color Yellow Urine Appearance Clear Urine pH 7.0 Ur Specific [place] 1.019 Urine Protein 2+ H Urine Glucose (UA) Negative Urine Ketones Trace H Urine Blood 2+ H Urine Nitrite Negative Urine Bilirubin Negative Urine Urobilinogen Negative Ur Leukocyte Esterase Negative Urine WBC (Auto) 1 Urine RBC (Auto) 7 Ur Epithelial Cells Rare Urine Mucus Rare Synovial Source Synovial Synovial WBC 19401 Synovial RBC 47760 Synovial Neutrophils 87 Synovial Lymphocytes 5 Synovial Monocytes 5 Synovial Macrophages 3 Active Medications Generic Name Dose Route Start Last Admin Trade Name Kristin PRN Reason Stop Dose Admin Chlordiazepoxide HCl 15 mg 04/20/18 23:00 04/21/18 16:55 Librium - PO 15 mg [id number] KIRK Administration Heparin Sodium (Porcine) 5,000 unit 04/20/18 22:00 04/21/18 09:49 Heparin - SQ 5,000 unit BID KIRK Administration Oxycodone HCl 10 mg 04/20/18 23:06 Roxicodone - PO Q6H PRN PAIN LEVEL 4 - 6 Prednisone 40 mg 04/21/18 10:00 04/21/18 09:49 Deltasone - PO 40 mg DAILY KIRK Administration Active Medications Generic Name Dose Route Start Last Admin Trade Name Kristin PRN Reason Stop Dose Admin Amlodipine Besylate 5 mg 04/22/18 10:15 04/22/18 10:49 Norvasc - PO 5 mg DAILY KIRK Administration Chlordiazepoxide HCl 15 mg 04/20/18 23:00 04/22/18 10:49 Librium - PO 15 mg [id number] KIRK Administration Colchicine 0.6 mg 04/21/18 20:00 04/22/18 10:49 Colcrys - PO 0.6 mg DAILY KIRK Administration Heparin Sodium (Porcine) 5,000 unit 04/20/18 22:00 04/22/18 10:49 Heparin - SQ 5,000 unit BID KIRK Administration Oxycodone HCl 10 mg 04/20/18 23:06 04/22/18 10:50 Roxicodone - PO 10 mg Q6H PRN Administration PAIN LEVEL 4 - 6 Prednisone 40 mg 04/21/18 10:00 04/22/18 10:49 Deltasone - PO 40 mg DAILY KIRK Administration
[2018-04-20] MEDS ORDERED: HEPARIN NA (PORCINE) 5,000 UNITS/ML 1ML VIAL ONE (22:54)
[2018-04-20] MEDS: HEPARIN NA (PORCINE) 5,000 UNITS/ML 1ML VIAL SQ SCH (23:18)
[2018-04-20] MEDS: chlordiazePOXIDE 5 MG CAPSULE PO SCH (23:18)
[2018-04-21] MEDS ORDERED: chlordiazePOXIDE 5 MG CAPSULE ONE ×2 (05:38→11:37)
[2018-04-21] MEDS: chlordiazePOXIDE 5 MG CAPSULE PO SCH ×4 (05:53→22:46)
[2018-04-21] MEDS ORDERED: HEPARIN NA (PORCINE) 5,000 UNITS/ML 1ML VIAL ONE (08:37)
[2018-04-21] MEDS: predniSONE 20 MG TABLET (UD) PO SCH (09:49)
[2018-04-21] MEDS: HEPARIN NA (PORCINE) 5,000 UNITS/ML 1ML VIAL SQ SCH ×2 (09:49→21:01)
[2018-04-21 10:34] LABS: CRYSTALS,SYNOVIAL FLUID POSITIVE
--- NOTE | 2018-04-21 12:24 | CONSULT ---
Consult Detox [facility] Reason for Current Admission/Consult: alcohol use - History History of Present Illness: pt transferred here from [facility] detox for eval and Rx of Knee pain and swelling- knee drained and pt feels better. Pt states he has been using alcohol since age 11, for 40 years. Recently has been using 1/4 pint a day. Denies h/o seizures, DT's or blackouts. 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 Pt is currently homeless and ? without insurance? Pt on alcohol detox protocol- without withdrawal Sx at the present moment, has prn librium. William Schofield Date: 1965 Address: [address] [place] [address] Sex: Male Rx Written Rx Dispensed Drug Quantity Days Supply Prescriber Name 11/07/2017 11/07/2017 alprazolam 0.5 mg tablet 12 4 Herbert Song DO 09/18/2017 09/18/2017 diazepam 5 mg tablet 9 3 Zuleima Saenz 08/05/2017 08/05/2017 tramadol hcl 50 mg tablet 12 3 Rama Mcgehe ( MS PA-C) 08/05/2017 08/05/2017 diazepam 2 mg tablet 11 4 Rama Mcghee (MS PA -C - History Source History Provided By: Patient Limitations to Obtaining History: No Limitations - Alcohol/Substance Use Hx Alcohol Use: Yes - Past Medical History Cardio/Vascular: Yes: HTN Rheumatology: Yes: Gout CIWA Score - CIWA Score Nausea/Vomitin-No Nausea/No Vomiting Muscle Tremors: None Anxiety: 1-Mildly Anxious Agitation: 0-Normal Activity Paroxysmal Sweats: 1-Minimal Palms Moist Orientation: 0-Oriented Tacttile Disturbances: 0-None Auditory Disturbances: 0-None Visual Disturbances: 0-None Headache: 0-None Present CIWA-Ar Total Score: 2 Assessment Plan - Diagnosis (1) EtOH dependence Status: Acute Qualifiers: - Plan Plan: Pt was on alcohol detox protocol. Admitted for knee pain/swelling and s/p drainage. Says feeling better. Pt would like to go to rehab when detox protocol is completed. Pt tentatively has a bed at [facility]- but needs to be verified prior to discharge. Pt lives in [place] and would like to go to rehab there. Not sure about availability of bed there. Please call us back if needed: [phone]
[2018-04-21 16:05] VITALS: BMI 31.1
--- NOTE | 2018-04-21 17:51 | PN ---
Progress Note, Physician - Current Medication List Current Medications: Active Medications Chlordiazepoxide HCl (Librium -) 15 mg PO [id number] [facility] Last Admin: 04/21/18 16:55 Dose: 15 mg Heparin Sodium (Porcine) (Heparin -) 5,000 unit SQ BID [facility] Last Admin: 04/21/18 09:49 Dose: 5,000 unit Oxycodone HCl (Roxicodone -) 10 mg PO Q6H PRN PRN Reason: PAIN LEVEL 4 - 6 Prednisone (Deltasone -) 40 mg PO DAILY [facility] Last Admin: 04/21/18 09:49 Dose: 40 mg - Objective Vital Signs: Vital Signs Temperature 98.0 F 04/21/18 16:05 Pulse Rate 88 04/21/18 16:05 Respiratory Rate 20 04/21/18 16:05 Blood Pressure 150/90 04/21/18 16:05 O2 Sat by Pulse Oximetry (%) 98 04/21/18 16:19 Constitutional: Yes: No Distress HENT: Yes: Atraumatic Neck: Yes: Supple Cardiovascular: Yes: Regular Rate and Rhythm Respiratory: Yes: CTA Bilaterally Gastrointestinal: Yes: Normal Bowel Sounds Extremities: Yes: Other (r knee warm, mild swelling) Peripheral Pulses WNL: Yes Neurological: Yes: Alert, Oriented Labs: CBC, BMP 04/20/18 13:40 04/20/18 13:40 INR, PTT INR 0.97 (0.83-1.09) 04/20/18 13:40 Problem List - Problems (1) EtOH dependence Assessment/Plan: on librium will get detox consult Code(s): F10.20 - ALCOHOL DEPENDENCE, UNCOMPLICATED Qualifiers: (2) Inability to walk Assessment/Plan: prn pain meds on crutches Code(s): R26.2 - DIFFICULTY IN WALKING, NOT ELSEWHERE CLASSIFIED (3) Gout Assessment/Plan: on prednisone colchicine Code(s): M10.9 - GOUT, UNSPECIFIED Qualifiers: (4) Nicotine dependence Code(s): F17.200 - NICOTINE DEPENDENCE, UNSPECIFIED, UNCOMPLICATED Qualifiers: (5) Anxiety and depression Assessment/Plan: will get psych eval Code(s): F41.9 - ANXIETY DISORDER, UNSPECIFIED; F32.9 - MAJOR DEPRESSIVE DISORDER, SINGLE EPISODE, UNSPECIFIED
[2018-04-21] MEDS: oxyCODONE HCL 5 MG TABLET PO PRN (20:56)
[2018-04-21] MEDS: COLCHICINE 0.6 MG TABLET (FP) PO SCH (20:57)
[2018-04-21] MEDS ORDERED: INSULIN SLIDING SCALE (NOVOLOG) 1 VIAL SQ SCH (22:00)
[2018-04-22] MEDS: chlordiazePOXIDE 5 MG CAPSULE PO SCH ×4 (05:45→22:04)
[2018-04-22] MEDS: predniSONE 20 MG TABLET (UD) PO SCH (10:49)
[2018-04-22] MEDS: HEPARIN NA (PORCINE) 5,000 UNITS/ML 1ML VIAL SQ SCH ×2 (10:49→21:57)
[2018-04-22] MEDS: amLODIPine BESYLATE 5 MG TABLET (FP) PO SCH (10:49)
[2018-04-22] MEDS: COLCHICINE 0.6 MG TABLET (FP) PO SCH (10:49)
[2018-04-22] MEDS: oxyCODONE HCL 5 MG TABLET PO PRN (10:50)
--- NOTE | 2018-04-22 16:07 | PN ---
Progress Note, Physician History of Present Illness: feeling better - Current Medication List Current Medications: Active Medications Amlodipine Besylate (Norvasc -) 5 mg PO DAILY [facility] Last Admin: 04/22/18 10:49 Dose: 5 mg Chlordiazepoxide HCl (Librium -) 15 mg PO [id number] [facility] Last Admin: 04/22/18 10:49 Dose: 15 mg Colchicine (Colcrys -) 0.6 mg PO DAILY [facility] Last Admin: 04/22/18 10:49 Dose: 0.6 mg Heparin Sodium (Porcine) (Heparin -) 5,000 unit SQ BID [facility] Last Admin: 04/22/18 10:49 Dose: 5,000 unit Oxycodone HCl (Roxicodone -) 10 mg PO Q6H PRN PRN Reason: PAIN LEVEL 4 - 6 Last Admin: 04/22/18 10:50 Dose: 10 mg Prednisone (Deltasone -) 40 mg PO DAILY [facility] Last Admin: 04/22/18 10:49 Dose: 40 mg - Objective Vital Signs: Vital Signs Temperature 98.4 F 04/22/18 15:00 Pulse Rate 72 04/22/18 15:00 Respiratory Rate 18 04/22/18 15:00 Blood Pressure 141/98 04/22/18 15:00 O2 Sat by Pulse Oximetry (%) 98 04/21/18 21:00 Constitutional: Yes: No Distress HENT: Yes: Atraumatic Neck: Yes: Supple Cardiovascular: Yes: Regular Rate and Rhythm Respiratory: Yes: CTA Bilaterally Gastrointestinal: Yes: Normal Bowel Sounds Extremities: Yes: WNL Edema: No Neurological: Yes: Alert, Oriented Labs: CBC, BMP 04/20/18 13:40 04/20/18 13:40 INR, PTT INR 0.97 (0.83-1.09) 04/20/18 13:40 Problem List - Problems (1) EtOH dependence Assessment/Plan: on librium will get detox consult Code(s): F10.20 - ALCOHOL DEPENDENCE, UNCOMPLICATED Qualifiers: (2) Inability to walk Assessment/Plan: prn pain meds Code(s): R26.2 - DIFFICULTY IN WALKING, NOT ELSEWHERE CLASSIFIED (3) Gout Assessment/Plan: will put him on prednisone check uric acid level Code(s): M10.9 - GOUT, UNSPECIFIED Qualifiers: (4) Nicotine dependence Code(s): F17.200 - NICOTINE DEPENDENCE, UNSPECIFIED, UNCOMPLICATED Qualifiers: (5) Anxiety and depression Assessment/Plan: will get psych eval Code(s): F41.9 - ANXIETY DISORDER, UNSPECIFIED; F32.9 - MAJOR DEPRESSIVE DISORDER, SINGLE EPISODE, UNSPECIFIED
--- NOTE | 2018-04-22 21:13 | PN ---
Mental Health Exam - Mental Status Exam Alert and Oriented to: Time, Place, Person Cognitive Function: Grossly Intact Patient Appearance: Unkempt Mood: Depressed, Anxious, Apprehensive Affect: Appropriate, Mood Congruent Patient Behavior: Distractible, Impulsive, Cooperative Speech Pattern: Perseverating ("CAN YOU HELP ME WITH SOMETHING TO SLEEP". ), Tangential Voice Loudness: Mildly Loud Thought Process: Intact Thought Disorder: Not Present Hallucinations: None Suicidal Ideation: None, Denies Homicidal Ideation: Denies Insight/Judgement: Fair Sleep: Poorly Appetite: Good Muscle strength/Tone: Normal Gait/Station: Deferred (KNEE INJURY, CRUTECHES BY SIDE.) Additional Comments: CLIENT IS PRESPIRING, UNABLE TO SHOWER, HIGH PULSE.
--- NOTE | 2018-04-22 21:20 | PN ---
Progress Note (short form) - Note Progress Note: THIS IS A 52 YO MLE ADMITTED FROM [facility] WHERE HE IS TREATED FOR DETOX ( NO BEDS IN [facility] WHERE HE LIV[facility]). 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 aLSO RELAPSED AFTER HAVING SOME "MONEY IN MY POCKET". cLIENT HAS A HISTORY OFR DEPRESSION AND ANXIETY, HAS A THERAPIST AND PSYCHIATRIST IN [place]. sTATED IN PAST HE HAS BEEN ON WELLBUTRIN. mOST RECENTLY ON PAXIL AND TRAZADONE IS HELPFUL. CURRENTLY ON LIBRIUM 15MG TAPER Q 6 HOUR. oN PAIN MEDICATION OXYCODONE. HAS ELEVATED PULSE. ELEVATED AST LOW na. SPOKE WITH GREGORIO Figueroa Problem List - Problems (1) Substance or medication-induced sleep disorder Assessment/Plan: GIVE TRAZADONE 50MG TO HELP SLEEP. MAY REPEAT DOSE IN 1 HOUR IF NOT SLEEPING. STILL ON LIBRIUM TAPER EVERY 6. Code(s): F19.982 - OTH PSYCHOACTIVE SUBSTANCE USE, UNSP W SLEEP DISORDER (2) Depression, major, recurrent, moderate Assessment/Plan: RESTART PAXIL 20MG FIRST DOSE NOW THEN DAILY. Code(s): F33.1 - MAJOR DEPRESSIVE DISORDER, RECURRENT, MODERATE
[2018-04-22] MEDS: PARoxetine HCL 10 MG TABLET (FP) PO SCH (21:57)
[2018-04-22] MEDS: traZODone HCL 50 MG TABLET (FP) PO SCH (21:57)
[2018-04-23] MEDS: chlordiazePOXIDE 5 MG CAPSULE PO SCH ×4 (06:33→22:07)
[2018-04-23 08:04] LABS: BASO % 0.3 % (0-2.0); EOS % 0.4 % (0-4.5); HEMATOCRIT 43.9 % (35.4-49); LYMPH % 26.2 % (8-40); MCH 33.6 pg (25.7-33.7); MCHC 34.1 g/dl (32.0-35.9); MEAN CELL VOLUME 98.6 fl (80-96); MEAN PLT VOLUME 6.6 fl (7.5-11.1); MONO % 8.9 % (3.8-10.2); NEUT % 64.2 % (42.8-82.8); PLATELET COUNT 152 K/MM3 (134-434); RBC 4.45 M/mm3 (4.00-5.60); RDW 12.8 % (11.9-15.9); WHITE BLOOD COUNT 10.3 K/mm3 (4.0-10.0)
[2018-04-23 09:05] LABS: ALBUMIN 3.2 g/dl (3.4-5.0); ALK PHOS 75 U/L (45-117); ANION GAP 8 MMOL/L (8-16); BILIRUBIN,TOTAL 0.6 mg/dL (0.2-1); BLOOD UREA NITROGEN 20 mg/dL (7-18); CALCIUM 9.1 mg/dL (8.5-10.1); CHLORIDE 103 mmol/L (98-107); CO2 26 mmol/L (21-32); CREATININE 0.8 mg/dL (0.55-1.3); GLUCOSE,RANDOM 110 mg/dL (74-106); POTASSIUM 3.5 mmol/L (3.5-5.1); SGOT/AST 15 U/L (15-37); SGPT/ALT 25 U/L (13-61); SODIUM 137 mmol/L (136-145); TOT PROT 7.1 g/dl (6.4-8.2)
[2018-04-23] MEDS ORDERED: PT OWN MED DRAWER 7, Y5N ONE (10:29)
[2018-04-23] MEDS: PARoxetine HCL 10 MG TABLET (FP) PO SCH (10:31)
[2018-04-23] MEDS: amLODIPine BESYLATE 5 MG TABLET (FP) PO SCH (10:31)
[2018-04-23] MEDS: predniSONE 20 MG TABLET (UD) PO SCH (10:31)
[2018-04-23] MEDS: COLCHICINE 0.6 MG TABLET (FP) PO SCH (10:31)
[2018-04-23] MEDS: HEPARIN NA (PORCINE) 5,000 UNITS/ML 1ML VIAL SQ SCH ×2 (10:32→21:03)
[2018-04-23] MEDS: oxyCODONE HCL 5 MG TABLET PO PRN (12:33)
--- NOTE | 2018-04-23 16:48 | PN ---
Progress Note, Physician - Current Medication List Current Medications: Active Medications Amlodipine Besylate (Norvasc -) 5 mg PO DAILY [facility] Last Admin: 04/23/18 10:31 Dose: 5 mg Chlordiazepoxide HCl (Librium -) 15 mg PO [id number] [facility] Last Admin: 04/23/18 10:32 Dose: 15 mg Colchicine (Colcrys -) 0.6 mg PO DAILY [facility] Last Admin: 04/23/18 10:31 Dose: 0.6 mg Heparin Sodium (Porcine) (Heparin -) 5,000 unit SQ BID [facility] Last Admin: 04/23/18 10:32 Dose: 5,000 unit Oxycodone HCl (Roxicodone -) 10 mg PO Q6H PRN PRN Reason: PAIN LEVEL 4 - 6 Last Admin: 04/23/18 12:33 Dose: 10 mg Paroxetine HCl (Paxil -) 10 mg PO DAILY [facility] Last Admin: 04/23/18 10:31 Dose: 10 mg Prednisone (Deltasone -) 40 mg PO DAILY [facility] Last Admin: 04/23/18 10:31 Dose: 40 mg Trazodone HCl (Desyrel -) 50 mg PO HS [facility] Last Admin: 04/22/18 21:57 Dose: 50 mg - Objective Vital Signs: Vital Signs Temperature 98.1 F 04/23/18 14:44 Pulse Rate 69 04/23/18 14:44 Respiratory Rate 17 04/23/18 14:44 Blood Pressure 150/83 04/23/18 14:44 O2 Sat by Pulse Oximetry (%) 100 04/23/18 09:00 Constitutional: Yes: No Distress HENT: Yes: Atraumatic Neck: Yes: Supple Cardiovascular: Yes: Regular Rate and Rhythm Respiratory: Yes: CTA Bilaterally Gastrointestinal: Yes: Normal Bowel Sounds Extremities: Yes: WNL Neurological: Yes: Alert, Oriented Labs: CBC, BMP 04/23/18 07:00 04/23/18 07:00 INR, PTT INR 0.97 (0.83-1.09) 04/20/18 13:40 Problem List - Problems (1) EtOH dependence Assessment/Plan: on librium will get detox consult Code(s): F10.20 - ALCOHOL DEPENDENCE, UNCOMPLICATED Qualifiers: (2) Inability to walk Assessment/Plan: prn pain meds Code(s): R26.2 - DIFFICULTY IN WALKING, NOT ELSEWHERE CLASSIFIED (3) Gout Assessment/Plan: will put him on prednisone check uric acid level Code(s): M10.9 - GOUT, UNSPECIFIED Qualifiers: (4) Nicotine dependence Code(s): F17.200 - NICOTINE DEPENDENCE, UNSPECIFIED, UNCOMPLICATED Qualifiers: (5) Anxiety and depression Code(s): F41.9 - ANXIETY DISORDER, UNSPECIFIED; F32.9 - MAJOR DEPRESSIVE DISORDER, SINGLE EPISODE, UNSPECIFIED
[2018-04-23] MEDS: traZODone HCL 50 MG TABLET (FP) PO SCH (21:03)
[2018-04-24] MEDS: chlordiazePOXIDE 5 MG CAPSULE PO SCH ×4 (05:56→22:03)
[2018-04-24] MEDS: HEPARIN NA (PORCINE) 5,000 UNITS/ML 1ML VIAL SQ SCH ×2 (09:42→21:17)
[2018-04-24] MEDS: COLCHICINE 0.6 MG TABLET (FP) PO SCH (09:42)
[2018-04-24] MEDS: predniSONE 20 MG TABLET (UD) PO SCH (09:42)
[2018-04-24] MEDS: amLODIPine BESYLATE 5 MG TABLET (FP) PO SCH (09:42)
[2018-04-24] MEDS: PARoxetine HCL 10 MG TABLET (FP) PO SCH (09:42)
[2018-04-24] MEDS: oxyCODONE HCL 5 MG TABLET PO PRN ×2 (13:48→20:22)
--- NOTE | 2018-04-24 16:50 | PN ---
Progress Note, Physician - Current Medication List Current Medications: Active Medications Amlodipine Besylate (Norvasc -) 5 mg PO DAILY [facility] Last Admin: 04/24/18 09:42 Dose: 5 mg Chlordiazepoxide HCl (Librium -) 15 mg PO [id number] [facility] Last Admin: 04/24/18 11:43 Dose: 15 mg Colchicine (Colcrys -) 0.6 mg PO DAILY [facility] Last Admin: 04/24/18 09:42 Dose: 0.6 mg Heparin Sodium (Porcine) (Heparin -) 5,000 unit SQ BID [facility] Last Admin: 04/24/18 09:42 Dose: 5,000 unit Oxycodone HCl (Roxicodone -) 10 mg PO Q6H PRN PRN Reason: PAIN LEVEL 4 - 6 Last Admin: 04/24/18 13:48 Dose: 10 mg Paroxetine HCl (Paxil -) 10 mg PO DAILY [facility] Last Admin: 04/24/18 09:42 Dose: 10 mg Prednisone (Deltasone -) 40 mg PO DAILY [facility] Last Admin: 04/24/18 09:42 Dose: 40 mg Trazodone HCl (Desyrel -) 50 mg PO HS [facility] Last Admin: 04/23/18 21:03 Dose: 50 mg - Objective Vital Signs: Vital Signs Temperature 97.9 F 04/24/18 14:47 Pulse Rate 62 04/24/18 09:00 Respiratory Rate 17 04/24/18 13:58 Blood Pressure 162/88 04/24/18 13:58 O2 Sat by Pulse Oximetry (%) 96 04/24/18 09:00 HENT: Yes: Atraumatic Neck: Yes: Supple Cardiovascular: Yes: Regular Rate and Rhythm Respiratory: Yes: CTA Bilaterally Gastrointestinal: Yes: Normal Bowel Sounds Extremities: Yes: WNL Edema: No Peripheral Pulses WNL: Yes Neurological: Yes: Alert, Oriented Labs: CBC, BMP 04/23/18 07:00 04/23/18 07:00 INR, PTT INR 0.97 (0.83-1.09) 04/20/18 13:40 Problem List - Problems (1) EtOH dependence Assessment/Plan: on librium.. Code(s): F10.20 - ALCOHOL DEPENDENCE, UNCOMPLICATED Qualifiers: (2) Inability to walk Assessment/Plan: prn pain meds Code(s): R26.2 - DIFFICULTY IN WALKING, NOT ELSEWHERE CLASSIFIED (3) Gout Assessment/Plan: doing much better on meds Code(s): M10.9 - GOUT, UNSPECIFIED Qualifiers: (4) Nicotine dependence Code(s): F17.200 - NICOTINE DEPENDENCE, UNSPECIFIED, UNCOMPLICATED Qualifiers: (5) Anxiety and depression Code(s): F41.9 - ANXIETY DISORDER, UNSPECIFIED; F32.9 - MAJOR DEPRESSIVE DISORDER, SINGLE EPISODE, UNSPECIFIED
[2018-04-24] MEDS ORDERED: PT OWN MED DRAWER 7, Y5N ONE (17:13)
[2018-04-24] MEDS ORDERED: BACITRACIN 15 GM TUBE TOPICAL OINTMENT TP PRN (19:31)
[2018-04-24] MEDS: traZODone HCL 50 MG TABLET (FP) PO SCH (21:18)
[2018-04-25] MEDS: chlordiazePOXIDE 5 MG CAPSULE PO SCH ×4 (05:50→23:33)
[2018-04-25] MEDS: predniSONE 20 MG TABLET (UD) PO SCH (11:10)
[2018-04-25] MEDS: amLODIPine BESYLATE 5 MG TABLET (FP) PO SCH (11:11)
[2018-04-25] MEDS: PARoxetine HCL 10 MG TABLET (FP) PO SCH (11:11)
[2018-04-25] MEDS: COLCHICINE 0.6 MG TABLET (FP) PO SCH (11:11)
[2018-04-25] MEDS: HEPARIN NA (PORCINE) 5,000 UNITS/ML 1ML VIAL SQ SCH ×2 (11:11→21:20)
--- NOTE | 2018-04-25 16:36 | DS ---
Physical Examination Vital Signs: Vital Signs Temperature 98.5 F 04/25/18 14:45 Pulse Rate 80 04/25/18 14:45 Respiratory Rate 21 H 04/25/18 14:45 Blood Pressure 152/88 04/25/18 14:45 O2 Sat by Pulse Oximetry (%) 96 04/24/18 21:00 Labs: CBC, BMP 04/23/18 07:00 04/23/18 07:00 Discharge Summary Reason For Visit: GOUT/ UNABLE TO WALK Current Active Problems Depression, major, recurrent, moderate (Acute) EtOH dependence (Acute) Inability to walk (Acute) Substance or medication-induced sleep disorder (Acute) Gout (Chronic) Condition: Fair - Instructions - Home Medications Comprehensive Discharge Medication List: Ambulatory Orders Paxil 40 mg PO DAILY 04/21/18 Trazodone HCl 150 mg PO HS 04/21/18 Amlodipine Besylate [Norvasc -] 5 mg PO DAILY #30 tablet 04/25/18 Colchicine [Colcrys -] 0.6 mg PO DAILY #30 tablet 04/25/18 Paroxetine HCl [Paxil -] 10 mg PO DAILY #30 tablet 04/25/18 Prednisone 10 mg PO ASDIR #30 tablet 04/25/18 traZODone HCL [Desyrel -] 50 mg PO HS #30 tablet 04/25/18
--- NOTE | 2018-04-25 17:29 | PN ---
Progress Note, Physician - Current Medication List Current Medications: Active Medications Amlodipine Besylate (Norvasc -) 5 mg PO DAILY [facility] Last Admin: 04/25/18 11:11 Dose: 5 mg Bacitracin (Bacitracin -) 1 applic TP BID PRN PRN Reason: DRY SKIN Last Admin: 04/24/18 20:23 Dose: 1 applic Chlordiazepoxide HCl (Librium -) 15 mg PO [id number] [facility] Last Admin: 04/25/18 17:04 Dose: 15 mg Colchicine (Colcrys -) 0.6 mg PO DAILY [facility] Last Admin: 04/25/18 11:11 Dose: 0.6 mg Heparin Sodium (Porcine) (Heparin -) 5,000 unit SQ BID [facility] Last Admin: 04/25/18 11:11 Dose: Not Given Oxycodone HCl (Roxicodone -) 10 mg PO Q6H PRN PRN Reason: PAIN LEVEL 4 - 6 Last Admin: 04/24/18 20:22 Dose: 10 mg Paroxetine HCl (Paxil -) 10 mg PO DAILY [facility] Last Admin: 04/25/18 11:11 Dose: 10 mg Prednisone (Deltasone -) 40 mg PO DAILY [facility] Last Admin: 04/25/18 11:10 Dose: 40 mg Trazodone HCl (Desyrel -) 50 mg PO HS [facility] Last Admin: 04/24/18 21:18 Dose: 50 mg - Objective Vital Signs: Vital Signs Temperature 98.5 F 04/25/18 14:45 Pulse Rate 80 04/25/18 14:45 Respiratory Rate 21 H 04/25/18 14:45 Blood Pressure 152/88 04/25/18 14:45 O2 Sat by Pulse Oximetry (%) 96 04/24/18 21:00 Constitutional: Yes: No Distress HENT: Yes: Atraumatic Neck: Yes: Supple Cardiovascular: Yes: Regular Rate and Rhythm Respiratory: Yes: CTA Bilaterally Gastrointestinal: Yes: Normal Bowel Sounds Extremities: Yes: WNL Edema: No Peripheral Pulses WNL: Yes Labs: CBC, BMP 04/23/18 07:00 04/23/18 07:00 INR, PTT INR 0.97 (0.83-1.09) 04/20/18 13:40 Problem List - Problems (1) EtOH dependence Assessment/Plan: on librium..prn Code(s): F10.20 - ALCOHOL DEPENDENCE, UNCOMPLICATED Qualifiers: (2) Inability to walk Assessment/Plan: prn pain meds Code(s): R26.2 - DIFFICULTY IN WALKING, NOT ELSEWHERE CLASSIFIED (3) Gout Assessment/Plan: doing much better on meds Code(s): M10.9 - GOUT, UNSPECIFIED Qualifiers: (4) Nicotine dependence Code(s): F17.200 - NICOTINE DEPENDENCE, UNSPECIFIED, UNCOMPLICATED Qualifiers: (5) Anxiety and depression Code(s): F41.9 - ANXIETY DISORDER, UNSPECIFIED; F32.9 - MAJOR DEPRESSIVE DISORDER, SINGLE EPISODE, UNSPECIFIED
[2018-04-25] MEDS: oxyCODONE HCL 5 MG TABLET PO PRN (20:04)
[2018-04-25] MEDS: traZODone HCL 50 MG TABLET (FP) PO SCH (21:20)
[2018-04-26] MEDS: chlordiazePOXIDE 5 MG CAPSULE PO SCH ×2 (05:55→12:13)
[2018-04-26 08:27] LABS: GLUCOSE,SYNOVIAL FLUID 25 mg/dL; TOTAL PROTEIN,SYNOVIAL FLUID 5 gm/dL
[2018-04-26 09:32] VITALS: BP 150/70; PULSE 61; TEMP 98.1
[2018-04-26] MEDS: COLCHICINE 0.6 MG TABLET (FP) PO SCH (09:32)
[2018-04-26] MEDS: amLODIPine BESYLATE 5 MG TABLET (FP) PO SCH (09:32)
[2018-04-26] MEDS: HEPARIN NA (PORCINE) 5,000 UNITS/ML 1ML VIAL SQ SCH (09:32)
[2018-04-26] MEDS: PARoxetine HCL 10 MG TABLET (FP) PO SCH (09:32)
[2018-04-26] MEDS: predniSONE 20 MG TABLET (UD) PO SCH (09:32)
--- NOTE | 2018-04-26 19:36 | DS ---
Physical Examination Vital Signs: Vital Signs Temperature 98.1 F 04/26/18 09:31 Pulse Rate 61 04/26/18 09:31 Respiratory Rate 20 04/26/18 09:31 Blood Pressure 150/70 04/26/18 09:31 O2 Sat by Pulse Oximetry (%) 96 04/26/18 09:00 Labs: CBC, BMP 04/23/18 07:00 04/23/18 07:00 Discharge Summary Reason For Visit: GOUT/ UNABLE TO WALK Condition: Fair - Instructions Disposition: HOME - Home Medications Comprehensive Discharge Medication List: Ambulatory Orders Paxil 40 mg PO DAILY 04/21/18 Trazodone HCl 150 mg PO HS 04/21/18 Amlodipine Besylate [Norvasc -] 5 mg PO DAILY #30 tablet 04/25/18 Colchicine [Colcrys -] 0.6 mg PO DAILY #30 tablet 04/25/18 Paroxetine HCl [Paxil -] 10 mg PO DAILY #30 tablet 04/25/18 Prednisone 10 mg PO ASDIR #30 tablet 04/25/18 traZODone HCL [Desyrel -] 50 mg PO HS #30 tablet 04/25/18 Amlodipine Besylate [Norvasc -] 5 mg PO DAILY #30 tablet 04/26/18 Colchicine 0.6 mg PO DAILY #30 capsule 04/26/18 Paroxetine HCl [Paxil] 10 mg PO DAILY #30 oral.susp 04/26/18 Prednisone 10 mg PO ASDIR #30 tablet 04/26/18 traZODone HCL [Desyrel -] 50 mg PO HS #30 tablet 04/26/18 DC TO REHAB
== END 2018-04-26 12:27 | disposition home or self-care (01) | DRG 351 ==
LOC: JER 12:18 → JERBED 20:40 → OBSVTOIN 21:56 → J5S 04-21 15:49
PROVIDERS: ADMIT Internal Medicine; ATTEND Internal Medicine
DX: M1A.9XX0 Chronic gout, unspecified, without tophus (tophi) (principal); F33.1 Major depressive disorder, recurrent, moderate; F10.20 Alcohol dependence, uncomplicated; F41.9 Anxiety disorder, unspecified; F17.210 Nicotine dependence, cigarettes, uncomplicated
CPT/HCPCS: 36415; 71046-TC-FY; 73562-TC-RT-FY; 80053; 81003; 81015; 82150; 82945; 83615; 84157; 84550; 84560; 85025; 85610; 85730; 87040; 87070; 87075; 87086; 87186; 87205; 87491; 87591; 89051; 89060; 97116-GP; 97161-GP; 99285-25; G0378; J1644